=== PATIENT | female | born 1990 | race Caucasian/White ===

== ENCOUNTER 2019-04-25 18:51 | Emergency (ER) | payer MEDICAID ==
[~2019-04-25] VITALS: Ht 160 cm; Wt 72.1 kg
[2019-04-25 19:05] VITALS: Ht 160 cm; Wt 72.1 kg
[2019-04-25 19:27] LABS: BASOPHIL % 0.5 % (0-2); PLATELET COUNT 309 x10^3mcL (130-400); RED CELL DISTRIBUTION WIDTH 14.1 % (11.5-14.5)
[2019-04-25 20:01] LABS: ALBUMIN 3.4 g/dL (3.4-5.0); ALKALINE PHOSPHATASE 69 U/L (46-116); ALT/SGPT 78 U/L (14-59); AST/SGOT 49 U/L (15-37); BILIRUBIN TOTAL 1.25 mg/dL (0.20-1.00); CALCIUM 9.2 mg/dL (8.5-10.1); CARBON DIOXIDE 25.8 mmol/L (21-32); CHLORIDE SERUM 101 mmol/L (98-107); CREATININE SERUM 0.5 mg/dL (0.6-1.0); GFR1 > 60 mL/min; GLUCOSE SERUM 139 mg/dL (74-106); LIPASE 59 IU/L (73-393); SODIUM SERUM 141 mmol/L (136-145); TOTAL PROTEIN, SERUM 6.5 g/dL (6.4-8.2)
[2019-04-26 00:14] LABS: AMPHETAMINE QUAL UR NONE DETECTED (See below)
[2019-04-26 01:20] VITALS: BP 114/75
== END 2019-04-26 01:20 | disposition home or self-care (01) ==
LOC: ED 18:51
PROVIDERS: Emergency Medicine
DX: E87.6 Hypokalemia (principal); E86.0 Dehydration; R10.13 Epigastric pain
CPT/HCPCS: J2270; J2405; J3010; J3490; J7030

== ENCOUNTER 2019-05-09 20:24 | Emergency (ER) | payer MEDICAID ==
[~2019-05-09] VITALS: Ht 160 cm; Wt 68.5 kg
[2019-05-09 20:40] VITALS: Ht 160 cm; Wt 68.5 kg
[2019-05-09 22:19] LABS: BASOPHIL % 0.7 % (0-2); PLATELET COUNT 238 x10^3mcL (130-400); RED CELL DISTRIBUTION WIDTH 14.2 % (11.5-14.5)
[2019-05-09 22:30] LABS: CALCIUM 8.8 mg/dL (8.5-10.1); CARBON DIOXIDE 28.9 mmol/L (21-32); CHLORIDE SERUM 105 mmol/L (98-107); CREATININE SERUM 0.6 mg/dL (0.6-1.0); GFR1 > 60 mL/min; GLUCOSE SERUM 205 mg/dL (74-106); POTASSIUM SERUM 3.4 mmol/L (3.5-5.1); SODIUM SERUM 144 mmol/L (136-145)
[2019-05-09 22:34] LABS: ALKALINE PHOSPHATASE 61 U/L (46-116); ALT/SGPT 94 U/L (14-59); AST/SGOT 25 U/L (15-37); BILIRUBIN TOTAL 0.8 mg/dL (0.20-1.00); LIPASE 69 IU/L (73-393); TOTAL PROTEIN, SERUM 6.4 g/dL (6.4-8.2)
[2019-05-09 22:35] LABS: ALBUMIN 3.3 g/dL (3.4-5.0)
[2019-05-09] MEDS ORDERED: METFORMIN HCL850 MG PO (23:00)
[2019-05-09 23:35] LABS: UA SPECIFIC GRAVITY 1.015 (1.005-1.035); microscopic required? YES; urine erythrocyte NEGATIVE (NEGATIVE)
[2019-05-10 00:23] VITALS: BP 138/78
== END 2019-05-10 00:23 | disposition home or self-care (01) ==
LOC: ED 20:24
PROVIDERS: Emergency Medicine
DX: R10.13 Epigastric pain (principal); R11.10 Vomiting, unspecified; E11.9 Type 2 diabetes mellitus without complications; Z90.49 Acquired absence of other specified parts of digestive tract
CPT/HCPCS: J2270; J2765; J3490; J7030

== ENCOUNTER 2019-05-10 20:05 | Inpatient (IN) | payer MEDICAID ==
[~2019-05-10] VITALS: Ht 160 cm; Wt 69.0 kg
[~2019-05-10 20:05] MED LIST: METFORMIN HCL850 MG PO
--- NOTE | 2019-05-10 20:25 | NUR ---
PT PRESENTS TO ED WITH C/O ABDOMINAL PAIN N/V/D FOR X3 DAYS. PT STATES THAT SHE HAS BEEN EXPERIENCING SYMPTOMS ON AND OFF FOR X3 MONTHS. PT WAS SEEN BY GI DR AND IS WAITING FOR A TEST. PT STATES THAT SHE WAS SEEN IN ED YESTERDAY BUT WAS UNABLE TO FILL RX DUE TO BEING SO SICK. PT STATES THAT SHE HAS BEEN VOMITING AND HAVING DIARRHEA Q20MIN. PT ACTIVELY VOMITING AT THIS TIME. PT PLACED ON FULL CM. PT AOX4, RESP EVEN AND UNLABORED, NO ACUTE DISTRESS NOTED. PT FAMILY AT BEDSIDE.
--- NOTE | 2019-05-10 21:08 | NUR ---
PT REFUSING TEST. PT STATES, THAT THEY PERFORMED THE URINE PREG YESTERDAY AND IT WAS NEGATIVE.
--- NOTE | 2019-05-10 21:11 | NUR ---
PT MEDICATED PER EMAR, PT ON FULL CM AT THIS TIME. PT PROVIDED BLANKET AND PILLOW FOR COMFORT. FLUIDS RUNNING AND FAMILY AT BEDSIDE. PT AOX4, RESP EVEN AND UNLABORED, MILD DISTRESS FROM PAIN NOTED.
[2019-05-10 21:13] LABS: BASOPHIL % 0.2 % (0-2); PLATELET COUNT 295 x10^3mcL (130-400); RED CELL DISTRIBUTION WIDTH 14.3 % (11.5-14.5)
[2019-05-10 21:40] LABS: ALBUMIN 3.9 g/dL (3.4-5.0); ALKALINE PHOSPHATASE 72 U/L (46-116); ALT/SGPT 92 U/L (14-59); AST/SGOT 21 U/L (15-37); BILIRUBIN TOTAL 0.94 mg/dL (0.20-1.00); CALCIUM 9.8 mg/dL (8.5-10.1); CARBON DIOXIDE 23.5 mmol/L (21-32); CREATININE SERUM 0.6 mg/dL (0.6-1.0); GFR1 > 60 mL/min; GLUCOSE SERUM 268 mg/dL (74-106); LIPASE 49 IU/L (73-393); TOTAL PROTEIN, SERUM 7.5 g/dL (6.4-8.2)
[2019-05-10 21:48] LABS: CHLORIDE SERUM 99 mmol/L (98-107); POTASSIUM SERUM 3.3 mmol/L (3.5-5.1); SODIUM SERUM 133 mmol/L (136-145)
--- NOTE | 2019-05-10 22:16 | NUR ---
PT RESTING WITH EYES CLOSED AT THIS TIME. RESP EVEN AND UNLABORED, NO ACUTE DISTRESS NOTED. PT ON FULL CM, FAMILY AT BEDSIDE.
--- NOTE | 2019-05-10 23:10 | NUR ---
pt states she is feeling much better and denies pain at this time
--- NOTE | 2019-05-10 23:17 | NUR ---
admitting resident at bedside to discuss plan of care with pt
[2019-05-10 23:20] LABS: MAGNESIUM 1.7 mg/dL (1.8-2.4); PHOSPHOROUS 4.3 mg/dL (2.5-4.9)
[2019-05-10 23:28] LABS: T3 TOTAL 1.09 ng/mL
[2019-05-10 23:29] LABS: CHOLESTEROL/HDL RATIO 6.8
--- NOTE | 2019-05-10 23:49 | NUR ---
PT REPORT CALLED TO OT[facility] PLATT TO ASSUME PT CARE.
--- NOTE | 2019-05-10 23:50 | NUR ---
PT UNABLE TO PROVIDE URINE SPECIMEN, PER DR CORDERO OK TO SEND PT TO [facility] WITHOUT URINE SPECIMEN.
[2019-05-10 23:52] LABS: FREE T4 1.26 ng/dL (0.76-1.46); FREE THYROXINE INDEX 3.3 ug/dL (1.4-4.5); T4(THYROXINE) 9.6 ug/dL (4.7-13.3)
--- NOTE | 2019-05-10 23:55 | NUR ---
PT TRANSFERRED TO [facility] BY [place] BY LUCILLE ARANA. PT ACCEPTED BY [facility] PLATT TO ASSUME PT CARE. PT AOX4, RESP EVEN AND UNLABORED, NO ACUTE DISTRESS NOTED. PT FAMILY AT BEDSIDE.
--- NOTE | 2019-05-10 23:58 | NUR ---
RECEIVED PT FROM ED VIA CompringERNEY, CAME IN DUE TO ABDOMINAL PAIN X3 DAYS AND VOMITING. AAOX4. DENIES HEADACHE/DIZZINESS. NO SOB NOTED, LUNG SOUNDS CTA. DENIES CHEST PAIN/PRESSURE, SR=[id number]. C/O 5/10 EPIGASTRIC PAIN DESCRIBED THROBBING, MILD NAUSEA, AND DIARRHEA X1 EPISODE. BOWEL SOUNDS ACTIVE. ABDOMEN IS SOFT. VOIDS. IV SITE ON THE RAC IS PATENT AND INTACT, RECEIVED PT FROM ED W/ NS ONGOING. SIDE RAILS UPX2. CALL LIGHT ON REACH. ENDORSED TO PRIMARY NURSE TIO FOR CONTINUITY OF CARE
--- NOTE | 2019-05-11 | NUR ---
PT IS RESTING IN BED. A/O x4. DENIES ANY DISTRESS AT THIS TIME. MED SURG. PULSES ARE PRESENT. NO EDEMA NOTED. BOWEL SOUNDS PRESENT x4. C/O UPSET STOMACH. DENIEDS N/V AT THIS TIME. BROTHER IS AT BEDSIDE. BED IS AT LOWEST SETTING. CALL LIGHT WITHIN REACH. WILL CONTINUE TO MONITOR.
[2019-05-11 00:16] VITALS: BP 112/80
[2019-05-11 00:24] VITALS: Ht 160 cm; Wt 69.0 kg
--- NOTE | 2019-05-11 02:11 | NUR ---
PT IS RESTING IN BED WITH BOTH EYES CLOSED. BREATHING EVEN AND UNLABORED. NO SIGN OF DISTRESS NOTED. BED IS AT LOWEST SETTING. CALL LIGHT WITHIN REACH. WILL CONTINUE TO MONITOR.
[2019-05-11 06:07] VITALS: BP 133/89
--- NOTE | 2019-05-11 06:59 | NUR ---
PT IS RESTING IN BED. C/O OF ABD PAIN, PRN PAIN MEDICATION PROVIDED PER EMAR. PT HAD ONE EMESIS EPISODE DURING SHIFT. NO OTHER COMPLAINTS. URINE WAS COLLECTED AND SENT TO LAB. BED IS AT LOWEST SETTING. CALL LIGHT WITHINR REACH. WILL ENDORSE TO AM NURSE.
--- NOTE | 2019-05-11 07:20 | NUR ---
AAO X4.DENIES ANY PAIN/DISCOMFORT AT THE MOMENT.LUNGS CLEAR.PT NONE TELE.IVF NS GOING AT 100 ML/HR INFUSING WELL.CALL LIGHT WITHIN REACH.INSTRUCTED TO CALL FOR ANY PAIN/DISCOMFORT.WILL CONTINUE TO MONITOR PT.
[2019-05-11 07:48] LABS: microscopic required? YES; urine erythrocyte NEGATIVE (NEGATIVE)
[2019-05-11 08:32] LABS: AMPHETAMINE QUAL UR NONE DETECTED (See below)
[2019-05-11 11:53] LABS: BASOPHIL % 0.6 % (0-2); PLATELET COUNT 251 x10^3mcL (130-400); RED CELL DISTRIBUTION WIDTH 14.4 % (11.5-14.5)
[2019-05-11 11:59] LABS: CALCIUM 9.2 mg/dL (8.5-10.1); CARBON DIOXIDE 25.4 mmol/L (21-32); CHLORIDE SERUM 109 mmol/L (98-107); CREATININE SERUM 0.7 mg/dL (0.6-1.0); GFR1 > 60 mL/min; GLUCOSE SERUM 156 mg/dL (74-106); POTASSIUM SERUM 3.3 mmol/L (3.5-5.1); SODIUM SERUM 147 mmol/L (136-145)
--- NOTE | 2019-05-11 14:31 | NUR ---
INFORMED ABOUT THE UA RESULT ALSO ALSO FOR DIET ORDER.
--- NOTE | 2019-05-11 18:45 | NUR ---
NO SIGNIFICANT CHANGE NOTED.WILL ENDORSE TO NEXT SHIFT.
--- NOTE | 2019-05-11 19:19 | NUR ---
GAVE MORPHINE 2 MG IVP FOR C/O SEVERE ABD'L PAIN AT 10/10 PAIN SCALE.
--- NOTE | 2019-05-11 20:36 | NUR ---
PATIENT RECEIVED AWAKE, ALERT, ORIENTED X4 IN BED. C/O ON/OFF ABDOMINAL PAIN EARLIER, MEDICATED WITH MORPHINE SULFATE 2 MG IVP ORDERED. RESPIRATION EVEN AND UNLABORED, ON ROOM AIR. VOIDING FREELY WITHOUT DIFFICULTY. MILD GENERALIZED WEAKNESS, UP TO CHAIR EVERY 8HRS TOLERATED. SKIN DRY AND INTACT. ONGOING 0.9% NS AT 100 CC/HR INFUSING WELL AT THE RIGHT ANTECUBITAL AREA. WILL CONTINUE TO MONITOR.
[2019-05-11 21:05] VITALS: BP 134/93
--- NOTE | 2019-05-11 23:57 | NUR ---
PATIENT ALSO COMPLAINED OF NAUSEA. ZOFRAN 4 MG IVP GIVEN ORDERED. WILL CONTINUE TO MONITOR.
--- NOTE | 2019-05-12 00:01 | NUR ---
PATIENT COMPLAINED OF SHARP, ABDOMINAL PAIN, 7/10. MEDICATED WITH MORPHINE SULFATE 2 MG IVP ORDERED. WILL CONTINUE TO MONITOR.
[2019-05-12 05:33] VITALS: BP 147/94
--- NOTE | 2019-05-12 05:48 | NUR ---
PATIENT COMPLAINED OF SHARP, ABDOMINAL PAIN, 8/10 AND NAUSEA. MEDICATED WITH MORPHINE SULFATE 2 MG IVP AND ZOFRAN 4 MG IVP ORDERED. WILL CONTINUE TO MONITOR.
[2019-05-12 06:40] LABS: BASOPHIL % 0.7 % (0-2); PLATELET COUNT 213 x10^3mcL (130-400); RED CELL DISTRIBUTION WIDTH 14.3 % (11.5-14.5)
[2019-05-12 06:50] LABS: CALCIUM 8.6 mg/dL (8.5-10.1); CARBON DIOXIDE 25.8 mmol/L (21-32); CHLORIDE SERUM 107 mmol/L (98-107); CREATININE SERUM 0.5 mg/dL (0.6-1.0); GFR1 > 60 mL/min; GLUCOSE SERUM 111 mg/dL (74-106); SODIUM SERUM 144 mmol/L (136-145)
--- NOTE | 2019-05-12 06:52 | NUR ---
PATIENT RESTING IN BED RESPIRATION EVEN AND UNLABORED, ON ROOM AIR. IV SITE NO SIGN OF INFILTRATION. ASSISTED WITH NEEDS. SAFETY OBSERVED. PLACED BED IN THE LOWEST POSITION. PLACED CALL LIGHT WITHIN REACH AT ALL TIMES.
[2019-05-12 06:53] LABS: POTASSIUM SERUM 2.9 mmol/L (3.5-5.1)
--- NOTE | 2019-05-12 07:30 | NUR ---
PT ENDORSE TO ME THIS MORNING. LAYING IN BED RESTING. AA/OX4. BREATHING EVEN AND UNLABORED ON RA, NO ACUTE RESP DISTRESS OR SOB NOTED. MEDSURG. DENIES ANY CP OR PRESSURE. BOWEL SOUNDS ACTIVE IN ALL FOUR QUADS. VOIDS FREELY. MEDICATED PER EMAR FOR ABD PAIN. IV TO THE RAC INTACT AND PATENT, INFUSING AT 100ML/HR, NO REDNESS OR SWELLING NOTED. CALL LIGHT IN REACH. BED IN LOW POSITION. WILL CONTINUE PLAN OF CARE.
[2019-05-12 08:10] VITALS: BP 149/94
--- NOTE | 2019-05-12 13:30 | NUR ---
Initial Nutrition Assessment: Dx: Intractable N/V PMHx: DM PSHx: cholecystectomy Labs: (05/12) K 2.9L, BG 111H, BUN 4L, Cre 0.5L (05/10) CHOL 259H, LDLC 190H, HDLC 38L, Amylase 136H, Lipase 49L, Mg 1.7L, HgA1c 6.5H Meds: Colace, Glucophage, Humulin R, Reglan, Toradol, Tums, Zofran Diet: Clear liquid CCHO diet x 1 day PO Intake: 50% of lunch 05/12. Ht: 5'3 Wt: 152 lb, 69 kg BMI: 26.9 kg/m2 (Overweight) Bed scale: 160.2 lb- may be skewed d/t blankets and pillows on bed. IBW: 115 lb, 52 kg %IBW: 132 UBW: 188 lb, timeframe unknown Age: 28 yrs old/Female Food Allergies: NKFA Skin:is intact. Merlin: 20 Edema: none GI: abd is soft, w/ active bowel sounds. Last BM: 05/11/19 Per provider's notes, CT abd/pelvis showed constipation and/or fecal impaction. Pt seen earlier today, c/o abd pain and discomfort. She reported her last episode of vomiting was this morning. She also stated that she has been eating poorly at home for 4 months now. Trigger received: N/V/D for 3 days. Problem with: N/V: yes D/C: no Problems with: Chewing:no Swallowing: no Current appetite: poor Recent wt change: yes, 36 lb wt loss %wt change: n/a Vitamin/Supplement use: none Special diet at home: Diabetic diet Physical activity: none at this time d/t pt's report of weakness. Nutrition education on Gastroparesis and Carbohydrate Counting provided to pt. Handouts from [facility] were provided. RD's contact information were also provided for future nutrition related questions. Food-drug interactions: Lipitor Education given? Yes. Estimated Nutritional Needs Based on ideal body weight 52 kg Energy: 7181-1323 kcal/d (25-30 kcal/kg for maintenance) Protein: 42-52 g/d (.8-1 g/kg- for adult maintenance) Fluid: 7589-8237 ml/d (1 ml/kcal) or per doctor Nutrition Diagnosis 1. Inadequate nutrient intake r/t altered GI function AEB pt's report of N/V/D and PO intake <75% of meals. Intervention 1. Recommend continuing Clear liquid CCHO diet per MD orders. 2. If/when medically appropriate, advance diet to GI Soft CCHO. Monitor/Evaluate Goal: PO intake at least 75% of estimated needs Monitor: PO intake, Labs, GI function F/U in 2-3 days as high risk 05/14-05/15
--- NOTE | 2019-05-12 13:31 | NUR ---
1. Recommend continuing Clear liquid CCHO diet per MD orders. 2. If/when medically appropriate, advance diet to GI Soft CCHO.
[2019-05-12 16:36] VITALS: BP 144/91
--- NOTE | 2019-05-12 18:57 | NUR ---
NO ACUTE CHANGES AT THIS TIME. NO ACUTE RESP DISTRESS OR SOB NOTED. MEDICATED PER EMAR FOR ABD PAIN AT THIS TIME. WILL ENDORSE TO INCOMING RN.
--- NOTE | 2019-05-12 19:15 | NUR ---
RECEIVED PT FROM PREVIOUS SHIFT NURSE. PT AOX4. DENIES SORENSON/DIZZINESS. MED SURG PT DENIES CP/PRESSURE. DENIES SOB/DIFFICULTY BREATHING. IV TO RAC, INTACT AND PATENT. BED IN LOWEST POSITION. CALL LIGHT WITHIN REACH. WILL CONTINUE TO MONITOR.
[2019-05-12 20:17] VITALS: BP 143/95
[2019-05-13 05:34] VITALS: BP 159/99
[2019-05-13 07:21] LABS: PLATELET COUNT 232 x10^3mcL (130-400); RED CELL DISTRIBUTION WIDTH 12.9 % (11.5-14.5)
--- NOTE | 2019-05-13 07:30 | NUR ---
PT ENDORSE TO ME THIS MORNING. LAYING IN BED RESTING. BREATHING EVEN AND UNLABORED ON RA, NO ACUTE RESP DISTRESS OR SOB NOTED. MEDSURG.DENIES ANY CP OR PRESSURE. IV TO THE RAC INTACT AND PATENT 0.45% NACL WITH KCL 20 MEQ INFUSING AT 80ML/HR, NO REDNESS OR SWELLING NOTED. WILL CONTINUE PLAN OF CARE.
[2019-05-13 07:31] LABS: CARBON DIOXIDE 22.9 mmol/L (21-32); CHLORIDE SERUM 101 mmol/L (98-107); CREATININE SERUM 0.5 mg/dL (0.6-1.0); GFR1 > 60 mL/min; GLUCOSE SERUM 113 mg/dL (74-106); SODIUM SERUM 140 mmol/L (136-145)
[2019-05-13 07:37] LABS: POTASSIUM SERUM 2.8 mmol/L (3.5-5.1)
--- NOTE | 2019-05-13 07:42 | NUR ---
LAB CALLED K 2.8, MADE AWARE. WILL CONTINUE PLAN OF CARE.
--- NOTE | 2019-05-13 08:00 | NUR ---
RAMBO JAMES MADE AWARE OF K 2.8
[2019-05-13 08:13] VITALS: BP 128/89
--- NOTE | 2019-05-13 10:42 | NUR ---
PT TAKEN DOWN TO RAD FOR XR: BE. WILL CONTINUE TO MONITOR WHEN PT RETURNS. BREATHING EVEN AND UNLABOARED ON RA. NO ACUTE RES DISTRSSS NOTED.
--- NOTE | 2019-05-13 11:50 | NUR ---
PT BACK FROM XR: BE/ TOERATED WELL. BM X2
[2019-05-13 15:45] VITALS: BP 139/101
--- NOTE | 2019-05-13 18:53 | NUR ---
NO ACUTE CHANGES AT THIS TIME. NO ACUTE RESP DISTRESS OR SOB NOTED. MEDICATED PER EMAR FOR ABD PAIN AT THIS TIME. WILL ENDORSE TO INCOMING RN .
--- NOTE | 2019-05-13 19:20 | NUR ---
RECEIVED PT FROM PREVIOUS SHIFT NURSE. PT AOX4. DENIES SORENSON/DIZZINESS. MED SURG PT. DENIES CP/PRESSURE. DENIES SOB/DIFFICULTY BREATHING, ON RA. IV TO RAC, INTACT AND PATENT. BED IN LOWEST POSITION. CALL LIGHT WITHIN REACH. WILL CONTINUE TO MONITOR.
[2019-05-13 21:02] VITALS: BP 145/93
--- NOTE | 2019-05-14 03:30 | NUR ---
PT RESTING IN BED. RR EVEN AND UNLABORED. IN NO ACUTE DISTRESS. CALL LIGHT WITHIN REACH. BED IN LOWEST POSITION. WILL CONTINUE TO MONITOR.
[2019-05-14 05:22] VITALS: BP 129/86
--- NOTE | 2019-05-14 06:30 | NUR ---
PT REFUSED PO MEDS, STATES SHE FELT NAUSEATED AND ALWAYS THROWS UP PO MEDS.
[2019-05-14 07:09] LABS: BASOPHIL % 0.5 % (0-2); PLATELET COUNT 242 x10^3mcL (130-400); RED CELL DISTRIBUTION WIDTH 14.1 % (11.5-14.5)
--- NOTE | 2019-05-14 07:30 | NUR ---
ASSUMED CARE OF PATIENT. SEEN AMBULATING THE HALLS THIS MORNING. NO COMPALINTS OF ABDOMINAL PAIN. NO APPARENT S/SX OF DISTRESS OR DISCOMFORT NOTED. FINISHING 0.45 NACL WITH KCL 20 MEQ AT 80ML/H, PENDING K LEVELS. RAC IV PATENT WITH NO REDNESS/SWELLING NOTED. WILL CONTINUE TO MONITOR.
[2019-05-14 07:39] LABS: CALCIUM 8.5 mg/dL (8.5-10.1); CARBON DIOXIDE 25.4 mmol/L (21-32); CHLORIDE SERUM 102 mmol/L (98-107); CREATININE SERUM 0.5 mg/dL (0.6-1.0); GFR1 > 60 mL/min; GLUCOSE SERUM 112 mg/dL (74-106); SODIUM SERUM 138 mmol/L (136-145)
[2019-05-14 07:54] LABS: POTASSIUM SERUM 2.9 mmol/L (3.5-5.1)
--- NOTE | 2019-05-14 08:20 | NUR ---
RAMBO JAMES MADE AWARE OF K LEVEL 2.8
[2019-05-14 09:11] VITALS: BP 145/86
--- NOTE | 2019-05-14 11:17 | NUR ---
PATIENT REFUSING REGLAN. NO REPORTS OF N/V. TOLERATING PO MEDS WELL.
--- NOTE | 2019-05-14 13:14 | NUR ---
PRN TORADOL PROVIDED FOR 8/10 BACK AND ABDOMINAL PAIN. NO APPARENT DISTRESS NOTED. FAMILY CURRENTLY AT BEDSIDE.
--- NOTE | 2019-05-14 14:41 | NUR ---
Follow-up Nutrition Assessment: (240-B) CASIMIRO MONTIEL 28F Dx: intactable nausea, vomiting PMHx: DM Labs: K 2.9 L, BG 112 H, BUN 3.0 L, Cr 0.5 L, ALT 92 H Meds: Amitiza, Cephulac, Colace, Glucophage, Humulin, Reglan, TUMS, Zofran Diet: full liquid PO Intake: ~50% Weights: 152# (05/11) 151# (05/10) 151# (05/09) Skin: WNL Merlin: 20 I/Os: 2420/0 (05/14) 3492/0 (05/13) 3000/600 (05/12) 250/0 (05/11) Edema: trace to hands and feet GI: BS active, no c/o abd pain Last BM: 05/14 Note (05/14): Pt visited bedside, noted saw pt walking around unit w/ family member. Pt states advanced from full liquid diet to regular diet, confirmed advanced to CCHO diet in chart. Pt still c/o abd pain, but mild 3 out of 10. Pt states regularly had some vomiting, but is doing better today. Pt also states having constipation, reason why she was walking around the unit. Pt states appetite is alright, eats about 60% of tray. Will monitor pt's PO on CCHO diet and reports of worsening N/V. Estimated Nutritional Needs Based on body weight (52 kg) Energy: 4708-6132 kcal/day (25-30 kcal/kg for maintenance) Protein: 58-77 grams/day (1.5-2.0 g/kg for maintenance) Fluid: 3866-1871 mL/day (30-35 mL/kg for rehydration r/t N/V) Nutrition Diagnosis: 05/12: Inadequate nutrient intake r/t altered GI function AEB pt's report of N/V/D and PO intake <75% of meals 05/14: No new nutrition diagnosis at this time. Intervention 1. Continue current diet order as tolerated: [facility] Monitor/Evaluate Goal: Have pt meet at least 75% of estimated needs Monitor: PO intake, Labs, GI function F/U in 3-5 days as moderate risk 05/17-05/19
--- NOTE | 2019-05-14 14:42 | NUR ---
Recommendations: 1. Continue current diet order as tolerated: [facility]
--- NOTE | 2019-05-14 14:46 | NUR ---
PATIENT SEEN RESTING IN BED WITH EQUAL AND UNLABORED RESPIRATIONS. FAMILY AT BEDSIDE. Jessika RODRIGES CONTINUING. NO NEW ISSUES.
--- NOTE | 2019-05-14 16:34 | NUR ---
PRN NORCO PROVIDED FOR 8/10 ABDOMINAL PAIN. NO APPARENT DISTRESS NOTED.
--- NOTE | 2019-05-14 17:08 | NUR ---
COMPLAINING OF 8/10 PAIN. ALL PRN PAIN MEDICATIONS PROVIDED. RAMBO DURAN.
--- NOTE | 2019-05-14 17:13 | NUR ---
PER CHILLER HAND JACOB, PATIENT TO HAVE IMPACTION REMOVED BY BM FIRST BEFORE MORPHINE CAN BE PROVIDED. TORADOL AND NORCO ONLY OPTIONS AT THIS TIME. PATIENT NOTIFIED AND WAS ACCEPTING OF SITUATION.
[2019-05-14 17:14] VITALS: BP 138/97
--- NOTE | 2019-05-14 17:37 | NUR ---
REPORTS NOT PASSING ANY GAS TODAY. TOLERATING REGULAR DIET WELL, NO COMPLAINTS OF NAUSEA OR VOMITING.
--- NOTE | 2019-05-14 18:44 | NUR ---
PATIENT SEEN RESTING IN BED WITH FAMILY AT BEDSIDE. COMPLAINING OF ABDOMINAL PAIN, NO PRN MEDICATIONS AVAILABLE. WILL ENDORSE CARE TO ONCOMING RN.
--- NOTE | 2019-05-14 19:15 | NUR ---
REPORT RECIEVED FROM DAY SHIFT RN. PATIENT WAS SEEN AND IS RESTING COMFORTABLY IN BED WITH FAMILY AT BEDSIDE. BREATHING EVEN ON ROOM AIR. NO SOB OR RESP DISTRESS NOTED. DENIES CHEST PAIN. C/O 06/02 ABD PAIN RADIATING TO HER BACK. WILL MEDICATED WITH PRN PAIN MED. IV TO THE RAC, SALINE LOCK, PATENT AND INTACT. NO REDNESS OR SWELLING NOTED. COMFORT AND SAFETY MEASURES MAINTAINED. BED IS LOCKED AND IN THE LOWEST POSITION. CALL LIGHT IS WITHIN REACH. WILL CONTINUE TO MONITOR.
--- NOTE | 2019-05-14 19:30 | NUR ---
C/O 06/02 ABD PAIN RADIATING TO HER BACK. PATIENT ALSO REPORTS THAT SHE HAD AN EPISDOE OF EMESIS ESTIMATING AROUND 20ML OF HER DINNER. PRN TORADOL AND ZOFRAN WERE ADMINISTERED PRESCRIBED. ALSO UPDATED PATIENT AND THE FAMILY ABOUT THE PATIENT'S PLAN OF CARE. WILL CONTINUE TO MONITOR AND REASSESS PAIN LEVEL. CALL LIGHT IS WITHIN REACH.
--- NOTE | 2019-05-14 20:15 | NUR ---
KRIDER STARTED AND IS INFUSING WELL. PATIENT STATES HER PAIN IS NOW A 6/10 AND IMPROVING FROM BEFORE. SHE ALSO STATES THAT HER NAUSEA IMPROVED WELL. WILL CONTINUE TO MONITOR. CALL LIGHT IS WITHIN REACH.
[2019-05-14 21:03] VITALS: BP 138/99
--- NOTE | 2019-05-14 21:59 | NUR ---
PATIENT IS AMBULATING AROUND THE HALLWAY AT THIS TIME.
--- NOTE | 2019-05-14 22:52 | NUR ---
C/O RIGHT FOOT PAIN 10/10. PRN NORCO WAS ADMINISTERED PRESCRIBED. WILL CONTINUE TO MONITOR AND REASSESS PAIN LEVEL. CALL LIGHT IS WITHIN REACH.
--- NOTE | 2019-05-15 00:24 | NUR ---
PATIENT HAD AN EPISODE OF EMESIS. STATES THAT IT WAS JUST STOMACH ACID. OFFERED PRN ZOFRAN, BUT PATIENT REFUSED AT THIS TIME. PRN NORCO WAS ADMINSITERED PRESCRIBED FOR 7/10 ABD PAIN RADIATING TO THE BACK. PRN TUMS ALSO ADMINSITERED BECAUSE PATIENT WAS C/O ACID REFLUX S/P EMESIS. WILL CONTINUE TO MONITOR AND REASSESS PAIN LEVEL. PATIENT STATES SHE DOES NOT FEEL NAUSEOS ANYMORE AND FEELS MUCH BETTER AFTER THROWING UP. KRIDER INFUSING WELL. PATIENT ALSO REPORTS SHE HAS BEEN HAVING LIQUID BMS THROUGHOUT THE NIGHT. SAFETY PRECAUTIONS IN PLACE.
--- NOTE | 2019-05-15 01:45 | NUR ---
PATIENT IS RESTING COMFORTABLY IN BED WITH EYES CLOSED. NO S/S OF PAIN NOTED. BREATHING EVEN ON ROOM AIR. NO DISTRESS NOTED. SAFETY MEASURES IN PLACE. CALL LIGHT IS WITHIN REACH. WILL CONTINUE TO MONITOR.
--- NOTE | 2019-05-15 05:43 | NUR ---
C/O 7/10 ABD BACK RADIATING TO THE BACK. PRN TORADOL WAS ADMINISTERED PRESCRIBED. WILL CONTINUE TO MONITOR AND REASSESS PAIN LEVEL. CALL LIGHT IS WITHIN REACH.
[2019-05-15 05:46] VITALS: BP 142/95
--- NOTE | 2019-05-15 06:30 | NUR ---
IV TO THE RAC WAS LEAKING. REMOVED IV WITH CATHETER INTACT. NO IV INSERTED TO THE RIGHT WRIST, 22G. PATENT AND INTACT. NO REDNESS OR SWELLING NOTED. FLUSHES WELL. PATIENT TOLERATED WELL.
--- NOTE | 2019-05-15 06:52 | NUR ---
PATIENT SLEPT IN INTERVALS THROUGHOUT THE NIGHT. NO ACUTE CHANGES NOTED. BREATHING EVEN ON ROOM AIR. C/O PAIN X2 THROUHGOUT THE NIGHT. MEDICATED WITH PRN PAIN MEDS WITH MILD RELIEF. HAD 3 WATERY BMS. HAD EMESIS X2. IV TO THE RIGTH WRIST, SL. PATENT AND INTACT. NO REDNESS OR SWELLING NOTED. SAFETY MEASURES IN PLACE. CALL LIGHT IS WITHIN REACH. WILL EDNORSE CARE TO DAY SHIFT RN.
[2019-05-15 07:06] LABS: CALCIUM 9.4 mg/dL (8.5-10.1); CARBON DIOXIDE 21.6 mmol/L (21-32); CHLORIDE SERUM 103 mmol/L (98-107); CREATININE SERUM 0.6 mg/dL (0.6-1.0); GFR1 > 60 mL/min; GLUCOSE SERUM 126 mg/dL (74-106); POTASSIUM SERUM 3.5 mmol/L (3.5-5.1); SODIUM SERUM 140 mmol/L (136-145)
--- NOTE | 2019-05-15 07:12 | NUR ---
ASSUMED CARE OF PATIENT. PATIENT SEEN SLEEPING. NO APPARENT S/SX OF DISTRESS OR DISCOMFORT. IV ON RIGHT WRIST SALINE LOCKED, NO REDNESS OR SWELLING NOTED. SISTER AT BEDSIDE. WILL CONTINUE TO MONITOR.
[2019-05-15 07:29] LABS: BASOPHIL % 0.5 % (0-2); PLATELET COUNT 287 x10^3mcL (130-400); RED CELL DISTRIBUTION WIDTH 14.3 % (11.5-14.5)
--- NOTE | 2019-05-15 08:56 | NUR ---
PATIENT SEEN AMBULATING HALLS WITH FAMILY AT SIDE. ENDORSES HAVING 2 LARGE BM'S LAST NIGHT. TOLERATING DIET WELL, NO REPORTS OF N/V.
[2019-05-15 09:40] VITALS: BP 138/105
--- NOTE | 2019-05-15 10:14 | NUR ---
LASHONDA FERNANDEZ PROVIDED FOR 7/10 ABDOMINAL PAIN.
--- NOTE | 2019-05-15 10:46 | NUR ---
PRN TORADOL PROVIDED FOR 5/10 ABDOMINAL PAIN.
--- NOTE | 2019-05-15 11:05 | NUR ---
PER . REBECCA TO BE D/C TO AVOID ANTISPASMOTICS. PLAN FOR COLONOSCOPY TOMORROW.
--- NOTE | 2019-05-15 12:29 | NUR ---
PATIENT COMPLAINING OF BURNING WITH KRIDER. RATE REDUCED TO 10ML/HR AND ICE PACK APPLIED.
--- NOTE | 2019-05-15 14:00 | NUR ---
PATIENT COMPLIANT WITH MEDICATIONS. COMPLAINTS OF MILD ABDOMINAL PAIN BUT TOLERABLE. CONSENTS FOR COLONOSCOPY TOMMORROW SIGNED AND PLACED IN CHART. NOTIFIED OF PROCEDURE AT APPROXIMATELY 8AM TOMORROW MORNING. FAMILY AT BEDSIDE.
--- NOTE | 2019-05-15 17:21 | NUR ---
PATIENT MOVED TO 254B
[2019-05-15 17:45] VITALS: BP 139/94
--- NOTE | 2019-05-15 18:14 | NUR ---
PATIENT EDUCATED ON BOWEL PREP. INITIATED TREATMENT.
--- NOTE | 2019-05-15 18:24 | NUR ---
1ML OF CLOTTED BLOOD REMOVED FROM GRETTA DRAIN. MINIMAL DRAINAGE NOTED.
--- NOTE | 2019-05-15 18:41 | NUR ---
PATIENT SEEN IN ROOM COMPLIANT WITH BOWEL PREP. FAMILY AT BEDSIDE. NO COMPLAINTS OF PAIN OR DISCOMFORT. IV ON RIGHT WRIST PATENT AND SALINE LOCKED, NO REDDNESS/SWELLING NOTED. WILL ENDORSE CARE TO ONCOMING RN.
--- NOTE | 2019-05-15 19:45 | NUR ---
RECEIVED PATIENT AMBULATING ALONG THE HALLWAY, WITH FAIR STEADY GAIT. DENIES ANY PAIN/DISCOMFORT AT THIS TIME. RESPIRATION EVEN AND UNLABORED , ON ROOM AIR, NO SS/ OF RESPIRATORY INSUFFICENCY. IV ACCESS AT THE RIGHT WRIST G#22 INTACT , NO REDNESS NOTED. NO EDEMA NOTED BOTH BUE/BLE. WILL CONTINUE TO MONITOR.
[2019-05-15 21:11] VITALS: BP 136/89
--- NOTE | 2019-05-15 23:00 | NUR ---
BOWEL PREP TOLERATED WELL. HAND BM 2X LARGE AMOUNT OF CLEAR BROWNISH COLOR , KEPT CLEAN AND DRY. IV ACCESS AT THE RIGH WRIST INTACT AND APTENT. NO SWELLING NOTED AT THE IV SITE. KEPT CLEAN AND DRY.
[2019-05-16 05:34] VITALS: BP 132/84
--- NOTE | 2019-05-16 05:55 | NUR ---
MAINTAINED NPO FOR COLONOSCOPY TODAY. AMBULATED TO BATHROOM FOR PERSONAL MEEDS. KEPT CLEAN AND DRY.
--- NOTE | 2019-05-16 07:23 | NUR ---
ASSUMED CARE OF PATIENT. SEEN SLEEPING THIS MORNING. NO APPARENT DISTRESS OR DISCOMFORT NOTED. IV ON RIGHT HAND SALINE LOCKED. REPORT PROVIDED TO GI THIS MORNING. WILL CONTINUE TO MONITOR.
[2019-05-16 07:27] LABS: BASOPHIL % 0.5 % (0-2); PLATELET COUNT 274 x10^3mcL (130-400)
[2019-05-16 07:52] LABS: CALCIUM 9.3 mg/dL (8.5-10.1); CARBON DIOXIDE 25.3 mmol/L (21-32); CHLORIDE SERUM 104 mmol/L (98-107); CREATININE SERUM 0.5 mg/dL (0.6-1.0); GFR1 > 60 mL/min; GLUCOSE SERUM 101 mg/dL (74-106); SODIUM SERUM 143 mmol/L (136-145)
--- NOTE | 2019-05-16 08:02 | NUR ---
TAKEN DOWN TO GI LAB.
--- NOTE | 2019-05-16 08:53 | NUR ---
PER GI LAB: BOWEL CLEAR, 125MCG FENTANYL, 5 MG VERSED, 200ML NS. REMOVED 1 POLYP IN SIGMOID, OTHERWISE NORMAL BOWEL.
[2019-05-16 09:02] LABS: POTASSIUM SERUM 2.8 mmol/L (3.5-5.1)
--- NOTE | 2019-05-16 09:05 | NUR ---
RETURN FROM GI LAB. PATIENT APPEARS DROWSY BUT IS ALERT AND ORIENTED. AT BEDSIDE. PATIENT STABLE AT THIS TIME.
[2019-05-16 09:10] VITALS: BP 102/62
--- NOTE | 2019-05-16 10:50 | NUR ---
K RIDER ADMINISTERED ORDERED. COMPLAINING OF PAIN ALONG IV SITE. REDUCED TO 40ML/HR AND ICE PACK APPLIED. EFFECTIVE; NO LONGER BURNING.
--- NOTE | 2019-05-16 11:13 | NUR ---
PATIENT TOLERATING PO DIET WELL. NO REPORTS OF NAUSEA OR VOMITING AT THIS TIME. REMAINS AT BEDSIDE.
--- NOTE | 2019-05-16 14:03 | NUR ---
PATIENT RESTING IN ROOM WITH FAMILY BEDSIDE. NO COMPLAINTS OF PAIN OR DISCOMFORT. NO REPORTS OF N/V. ENDORSES "FEELING BETTER." NO NEW ISSUES.
--- NOTE | 2019-05-16 17:03 | NUR ---
PATIENT SEEN RESTING IN ROOM WITH FAMILY MEMBERS AT BEDSIDE. NO COMPLAINTS OF PAIN OR DISCOMFORT. NO N/V. PATIENT REPORTS LOOKING FORWARD TO DISCHARGE. NO NEW ISSUES.
[2019-05-16 17:29] VITALS: BP 143/101
--- NOTE | 2019-05-16 18:46 | NUR ---
PATIENT SEEN WITH FAMILY AT BEDSIDE. NO CMOPLAINTS OF ABDOMINAL PAIN. NO COMPLAINTS OF N/V. TOLERATING DIET WELL. IV REMAINS SALINE LOCKED AT THIS TIME. WILL ENDORSE CARE TO ONCOMING RN.
--- NOTE | 2019-05-16 19:42 | NUR ---
RECEIVED REPORT FROM AM RN. PT IS ALERT AND ORIENTED X4. PUPILS REACTIVE TO LIGHT. PT IS BREATHING E/U ON RA. LUNG SOUNDS CLEAR TO BILATERAL UPPER LOBES, DIMINSHED TO BILATEAR LOWER LOBES. S1 S2 HEART SOUNDS AUSCULTATED. PERIPHERAL IV TO RIGHT HAND SALINE LOCKED. PULSES MODERATE X4. CAP REFILL <3 SECONDS X4. SKIN IS WARM AND CONSISTENT WITH ETHNICITY. ABD IS SOFT AND FLAT WITH ACTIVE BOWEL SOUNDS X4Q. PT NOT COMPLAINING OF ABD PAIN AT THIS TIME. PT STATING HAVING LIQUID STOOL. PT ABLE TO AMBULATE TO RESTROOM INDEPENDENTLY. WILL CONTINUE TO MONITOR.
[2019-05-16 20:48] VITALS: BP 132/96
--- NOTE | 2019-05-16 21:00 | NUR ---
ATTEMPTED TO GIVE PATIENT 2100 MEDS, BUT PT REFUSED ALL OF THEM SAYING SHE IS "GOING TO BE DISCHARGED TOMORROW AND I DONT THINK I NEED TO TAKE THEM ANYMORE". EDUCATED THE PATIENT ON THE IMPORTANCE OF FOLLOWING HER MED REGIMEN, AND THE PURPOSE AND SIDE EFFECTS OF THE MEDS, BUT PT CONTINUED TO REFUSE.
--- NOTE | 2019-05-16 23:37 | NUR ---
PT SLEEPING CALMLY IN BED. EQUAL CHEST RISE AND FALL. WILL CONTINUE TO MONITOR.
[2019-05-17 05:36] VITALS: BP 122/81
--- NOTE | 2019-05-17 07:26 | NUR ---
ALL CARE ENDORSED TO LC CALIX. ALL QUESTIONS AND CONCERNS ANSWERED.
--- NOTE | 2019-05-17 07:45 | NUR ---
RECEIVED PT RESTING IN BED. NO ACUTE DISTRESS. SLEEPING BUT EASILY AROUSABLE. BREATHING EVEN AND UNLABORED ON RA. APPEARS COMFORTABLE, NO PAIN NOTED. IV TO R WRIST, NO REDNESS OR SWELLING. BED IN LOW POSITION, CALL LIGHT WITHIN REACH. WILL CONTINUE TO MONITOR.
[2019-05-17 08:09] LABS: BASOPHIL % 0.6 % (0-2); PLATELET COUNT 257 x10^3mcL (130-400); RED CELL DISTRIBUTION WIDTH 14.2 % (11.5-14.5)
[2019-05-17 08:22] LABS: CALCIUM 8.9 mg/dL (8.5-10.1); CARBON DIOXIDE 24.9 mmol/L (21-32); CHLORIDE SERUM 105 mmol/L (98-107); CREATININE SERUM 0.4 mg/dL (0.6-1.0); GFR1 > 60 mL/min; GLUCOSE SERUM 134 mg/dL (74-106); SODIUM SERUM 141 mmol/L (136-145)
[2019-05-17 08:53] VITALS: BP 129/99
--- NOTE | 2019-05-17 09:53 | NUR ---
PT AMBULATING IN HALLWAYS, GAIT STEADY. NO C/O PAIN. WILL CONTINUE TO MONITOR.
[2019-05-17 10:29] VITALS: BP 129/99
[2019-05-17] MEDS ORDERED: ELA25 PO (11:53)
[2019-05-17] MEDS ORDERED: AMITIZA24 MC1 PO (11:54)
--- NOTE | 2019-05-17 12:46 | NUR ---
PT DISCHARGED TO HOME IN NO ACUTE DISTRESS. AWAKE, ALERT, AND ORIENTED. VSS. AMBULATORY. RX GIVEN. DISCHARGE EDUCATION PROVIDED, PT VERBALIZED UNDERSTANDING. INSTRUCTED PT TO FOLLOW UP WITH PCP. PT GIVEN COPY OF COLONOSCOPY IMAGING. IV DC'D WITH CATHETER INTACT. BELONGINGS WITH PT. HUMPHREY JORGE ACCOMPANIED PT TO LOBBY.
== END 2019-05-17 12:47 | disposition home or self-care (01) | DRG 48 ==
LOC: ED 20:05 → MU 22:44
PROVIDERS: Emergency Medicine; General Practice; Internal Medicine Gastroenterology; ADMIT Internal Medicine
PROC: 0DJD8ZZ Inspection of Lower Intestinal Tract, Via Natural or Artificial Opening Endoscopic (ICD-10-PCS; principal; 2019-05-16 08:00)
DX: E11.43 Type 2 diabetes mellitus with diabetic autonomic (poly)neuropathy (principal); N17.0 Acute kidney failure with tubular necrosis; K31.84 Gastroparesis; E87.1 Hypo-osmolality and hyponatremia; N39.0 Urinary tract infection, site not specified; E83.42 Hypomagnesemia; E87.6 Hypokalemia; R80.9 Proteinuria, unspecified; E78.5 Hyperlipidemia, unspecified; I10 Essential (primary) hypertension; Z68.26 Body mass index [BMI] 26.0-26.9, adult; Z79.84 Long term (current) use of oral hypoglycemic drugs
CPT/HCPCS: 45378; 82962; 84439; 87046; 87046-59; G0378; J1200; J1610; J1885; J2250; J2270; J2310; J2405; J2765; J3010; J3475; J3480; J3490; J7030; J7040; J7050; J8597; Q0092; Q9967

== ENCOUNTER 2019-05-27 01:58 | Inpatient (IN) | payer MEDICAID ==
[~2019-05-27] VITALS: Ht 160 cm; Wt 65.4 kg
[~2019-05-27 01:58] MED LIST changes: +AMITIZA24 MC1 PO; +ELA25 PO
[2019-05-27 02:03] VITALS: Ht 160 cm; Wt 65.4 kg
--- NOTE | 2019-05-27 02:19 | NUR ---
DR PANIAGUA AT BEDSIDE FOR MSE
--- NOTE | 2019-05-27 02:39 | NUR ---
EKG COMPLETED BY EMT JUSTING AND LAB AT BEDSIDE. PT GIVEN MEDICATIONS ORDERED. NO S/S OF DISTRESS. VITALS STABLE WILL CONTINUE TO MONITOR.
[2019-05-27 02:52] LABS: BASOPHIL % 0.5 % (0-2); PLATELET COUNT 342 x10^3mcL (130-400); RED CELL DISTRIBUTION WIDTH 13.9 % (11.5-14.5)
[2019-05-27 03:00] LABS: CALCIUM 10.2 mg/dL (8.5-10.1); CARBON DIOXIDE 25.3 mmol/L (21-32); CHLORIDE SERUM 97 mmol/L (98-107); CREATININE SERUM 0.8 mg/dL (0.6-1.0); GFR1 > 60 mL/min; GLUCOSE SERUM 426 mg/dL (74-106); POTASSIUM SERUM 4.5 mmol/L (3.5-5.1); SODIUM SERUM 135 mmol/L (136-145)
[2019-05-27 03:10] LABS: ALBUMIN 3.9 g/dL (3.4-5.0); ALKALINE PHOSPHATASE 71 U/L (46-116); ALT/SGPT 81 U/L (14-59); AST/SGOT 26 U/L (15-37); BILIRUBIN TOTAL 1.09 mg/dL (0.20-1.00); LIPASE 109 IU/L (73-393); TOTAL PROTEIN, SERUM 7.7 g/dL (6.4-8.2)
--- NOTE | 2019-05-27 04:02 | NUR ---
PT AMBULATED TO RESTROOM WITH STEADY GAIT. URINE SAMPLE COLLECTED AND SENT TO LAB. VITALS STABLE. PT DENIES PAIN. POSTIONED FOR COMFORT WITH MOTHER AND AT BEDSIDE
--- NOTE | 2019-05-27 04:18 | NUR ---
LAB AT BEDSIDE FOR COLLECTION OF CULTURES.
--- NOTE | 2019-05-27 04:22 | NUR ---
X RAY AT BEDSIDE
--- NOTE | 2019-05-27 04:30 | NUR ---
ADMITTING MD AT BEDSIDE FOR EVALUATION
[2019-05-27 04:39] LABS: CHOLESTEROL/HDL RATIO 8.6
--- NOTE | 2019-05-27 04:40 | NUR ---
REPORT GIVEN TO TORI TO ASSUME CARE OF PT
--- NOTE | 2019-05-27 04:50 | NUR ---
RECEIVED PT FROM ED VIA WHEELCHAIR ACCOMPANIED BY , MOTHER AND EMT. PT ABLE TO AMBULATE TO BED. EVEN AND UNLABORED RESPIRATION ON RA. IVL PATENT AND INTACT. C/O ABD PAIN 03/03 BUT RESOLVING FROM MEDS GIVEN IN ED. ORIENTED PT TO ROOM AND SURROUNDINGS. INSTRUCTED ON USE OF CALL LIGHT WHEN IN NEED OF ASSISTANCE. BED IN LOWEST POSITION. SIDE RAILS UPX2. CALL LIGHT WITHIN REACH. WILL CONTINUE TO MONITOR.
[2019-05-27 05:01] VITALS: BP 108/74
[2019-05-27 05:58] LABS: microscopic required? YES; urine erythrocyte TRACE (NEGATIVE)
[2019-05-27 06:05] LABS: AMPHETAMINE QUAL UR NONE DETECTED (See below)
--- NOTE | 2019-05-27 06:57 | NUR ---
PT RESTING COMFORTABLY IN BED. FAMILY AT BEDSIDE. EVEN AND UNLABORED RESPIRATIONS NOTED ON RA. IVL PATENT AND INTACT. ALL NEEDS TENDED TO AND MET. BED IN LOWEST POSITION. SIDE RAILS UPX2. CALL LIGHT WITHIN REACH. WILL ENDORSE TO ONCOMING SHIFT.
--- NOTE | 2019-05-27 07:05 | NUR ---
RECEIVED PT FROM [facility] SHIFT NURSE. PT IN BED SLEEPING, AROUSABLE, RESP E/U ON RA. NO ACUTE DISTRESS NOTED. SALINE LOCK TO R HAND W/ NO ERYTHEMA OR EDEMA. BED IN LOWEST POSITION AND CALL LIGHT WITHIN REACH. WILL CONTINUE TO MONITOR.
[2019-05-27 08:01] VITALS: BP 105/74
--- NOTE | 2019-05-27 12:10 | NUR ---
PT IN BED SLEEPING, AROUSABLE. RESP E/U ON RA. NO ACUT DISTRESS NOTED, BED IN LOWEST POSITION AND CALL LIGHT WITHIN REACH. FAMILY MEMBER AT BEDSIDE. WILL CONTINUE TO MONITOR.
--- NOTE | 2019-05-27 12:10 | NUR ---
PT IN BED SLEEPING, AROUSABLE, RESP E/U ON RA. NO ACUTE DISTRESS NOTED. BED IN LOWEST POSITION AND CALL LIGHT WITHIN REACH. FAMILY MEMBER AT BEDSIDE. WILL CONTINUE TO MONITOR.
[2019-05-27 12:18] VITALS: BP 106/68
[2019-05-27 15:55] VITALS: BP 114/75
--- NOTE | 2019-05-27 18:49 | NUR ---
PT RESTING IN BED, AOX4, RESP E/U ON RA. C/O ABD PAIN AND NAUSEA BUT TOLERABLE, NO REQUEST FOR PAIN/NAUSEA MEDS AT THIS TIME. COMFORT MEASURES IMPLEMENTED, ENCOURAGED TO EAT DINNER AND DRINK FLUIDS WHEN ABLE TO TOLERATE. BED IN LOWEST POSITION AND CALL LIGHT WITHIN REACH. WILL ENDORSE TO ONCOMING NURSE.
--- NOTE | 2019-05-27 19:40 | NUR ---
PT DENY ABD PAIN N/V AT THE MOMENT , LUNG SOUNDS CTA ,A BD SOFT BS ACTIVE X4, HL INTACT FLUSHING WELL . CALL LIGHT WITHIN PT;S REACH .
[2019-05-27 19:57] VITALS: BP 100/75
--- NOTE | 2019-05-28 00:12 | NUR ---
PT'S IN BED WITH EYES CLOSED
[2019-05-28 05:16] VITALS: BP 115/80
[2019-05-28 06:15] LABS: BASOPHIL % 0.9 % (0-2); PLATELET COUNT 285 x10^3mcL (130-400); RED CELL DISTRIBUTION WIDTH 13.8 % (11.5-14.5)
--- NOTE | 2019-05-28 06:24 | NUR ---
NO CHANGES OF CONDITION NOTED, ALL DUE MEDS GIVEN NO REACTION NOTED , HL INTACT FLUSHING WELL , . PT DENY N/V AT THE MOMENT .
[2019-05-28 06:44] LABS: CALCIUM 9.3 mg/dL (8.5-10.1); CARBON DIOXIDE 27.7 mmol/L (21-32); CHLORIDE SERUM 101 mmol/L (98-107); CREATININE SERUM 0.6 mg/dL (0.6-1.0); GFR1 > 60 mL/min; GLUCOSE SERUM 236 mg/dL (74-106); MAGNESIUM 1.8 mg/dL (1.8-2.4); PHOSPHOROUS 4.4 mg/dL (2.5-4.9); POTASSIUM SERUM 3.8 mmol/L (3.5-5.1); SODIUM SERUM 137 mmol/L (136-145)
--- NOTE | 2019-05-28 07:30 | NUR ---
PATIENT RESTING IN BED, NO ACUTE DISTRESS NOTED. FAMILY AT BEDSIDE. PATIENT DENIES PAIN AT THIS TIME. DENIES N/V. IV TO RIGHT HAND CDI & PATENT, NO S/S OF INFILTRATION, SALINE LOCK. CALL LIGHT WITHIN REACH, BED IN LOW POSITION, WILL CONTINUE TO MONITOR FOR CHANGES.
[2019-05-28 08:41] VITALS: BP 111/83
--- NOTE | 2019-05-28 11:53 | NUR ---
PATIENT C/O ABDOMINAL PAIN 05/03, MEDICATED PATIENT WITH NORCO. REPOSITIONED PATIENT FOR COMFORT. EDUCATED PATIENT ON PAIN MANAGEMENT. CALL LIGHT WITHIN REACH, BED IN LOW POSITION. WILL CONTINUE TO MONITOR.
--- NOTE | 2019-05-28 12:19 | NUR ---
Initial Nutrition Assessment: (232-B) CASIMIRO MONTIEL 28F Dx: Intracable vomiting, dehydration, hyperglycemia PMHx: DM2, Obesity PSHx: Cholecystectomy Labs: BG 236 H, Ca 10.2 H, ALT 81 H, Trig 171 H, Chol 257 H, LDL 176 H, HDL 30 L, A1c 6.7H, Ketones +2 H Meds: Amitiza, Colace, Dulcolax, Glucophage, Humulin, Reglan, Zofran Diet: CCHO PO intake since admission: <50% Ht: 63in Wt: 144# BMI: 25.6 Bed scale: 151.9# IBW: 115# %IBW: 125% UBW: 150# Age: 28 Food Allergies: NKFA Skin: Merlin: 22 Edema: None noted GI: Deny N/V at the moment Last BM: 05/24 Note (05/28): Nursing trigger for N/V/D >3d and poor PO >3d. Visited pt bedside, pt feeling tired. Pt states has N/V here and there, has good appetite but low PO r/t pain when consumes food, 4/10 abd pain at this time w/ some back pain. Pt also states consumes <50% of food on tray. Pt reports follows DM diet at home. Pt also reports to having lost about 40# in the last 4 months. Provided and explained handout on managing gallbladder issues with diet (i.e. small, frequent meals, low fat foods). Instructed pt to drink plenty of fluids each day. Pt appropriate for diet supplementation and adjustment. Spoke w/ Dr Funez regarding diet and ONS, confirmed. Problem with: N/V/D/C: some N/V Problems with: Chewing: No Swallowing: No Current appetite: good Recent wt change: 40# x 4mo, per pt %wt change: 21%, per pt Vitamin/Supplement use: None Special diet at home: DM diet Physical activity: N/A Nutrition education given (specify specific nutrition education and handout given): [facility] Gallbladder Nutrition Therapy provided and explained: low fat diet, small frequest meals when cannot tolerate bigger meals. Recommended restrict fat to ~50g/day (<30% of recommended kcal/day). Food-drug interactions? Education given? [place] Gallbladder Nutrirtion Therapy Estimated Nutritional Needs Based on current body weight (65 kg) Energy: 6605-1772 kcal/day (25-30 kcal/kg for maintenance) Protein: 65-78 g/day (1.0-1.2 g/kg for maintenance) Fluid:0559-2669 mL/day (30-35 mL/kcal for rehydration r/t N/V) Nutrition Diagnosis: 05/12: Inadequate nutrient intake r/t altered GI function AEB pt's report of N/V/D and PO intake <75% of meals 05/28: Inadequate nutrient intake r/t altered GI function AEB PO intake since admission <50% 05/28: Impaired nutrient utilization r/t Cholecystectomy AEB intractable vomiting, pain radiating to back, last BM >3days ago Intervention 1. Recommend add Low Fat diet [facility] diet order. 2. Recommend add Glucerna Chocolate TID w/ each meal. Monitor/Evaluate Goal: PO intake at least 75% of estimated needs Monitor: PO intake, Labs, GI function F/U in 3-5 days as modeate risk 05/31-06/02
--- NOTE | 2019-05-28 12:20 | NUR ---
Recommendations: 1. Recommend add Low Fat diet to [facility] diet order. 2. Recommend add Glucerna Chocolate TID w/ each meal.
--- NOTE | 2019-05-28 12:50 | NUR ---
PATIENT WAS C/O NAUSEA/VOMITTING MEDICATED PATIENT WITH ZOFRAN PER PROTOCOL. WILL CONTINUE TO MONITOR PATIENT, CALL LIGHT WITHIN REACH, BED IN LOW POSITION.
--- NOTE | 2019-05-28 14:25 | NUR ---
PATIENT WAS C/O CONTINOUS ABDOMINAL PAIN 07/03, PATIENT DESCRIBED PAIN THROBBING AND RADIATING TO BACK. DR RAJPUT MADE AWARE, AND STATES PATIENT WILL STAY ANOTHER NIGHT. MEDICATED PATIENT WITH MORPHINE PER PROTOCOL, REPOSITION PATIENT FOR COMFORT. WILL CONTINUE TO MONITOR AND MANAGE PAIN, CALL LIGHT WITHIN REACH, BED IN LOW POSITION FOR SAFETY PRECAUTION.
[2019-05-28 17:35] VITALS: BP 118/83
--- NOTE | 2019-05-28 18:01 | NUR ---
PATIENT SITTING UP AT BEDSIDE, EATING SMALL BITES OF HER DINNER. ENCOURAGED PATIENT TO EAT, DENIES NAUSEA. NO ACUTE DISTRESS NOTED AT THIS TIME. PATEINT DENIES PAIN AT THIS TIME. NO RESPIRATORY DISTRESS NOTED. IV TO RIGHT HAND SALINE LOCK, IV SITE CDI & PATENT, NO S/S OF INFILTRATION. CALL LIGHT WITHIN REACH, BED IN LOW POSITION. WILL ENDORSE REPORT TO NIGHT RN.
--- NOTE | 2019-05-28 20:00 | NUR ---
PT RECIEVED FROM DAY NURSE. PT RESTING IN BED. FAMILY AT BEDSIDE. NO COMPLAINTS OF PAIN AT THIS TIME. DENIES N/V, DIZZINESS, OR PALPATATIONS. LUNG SOUNDS CLEAR BILATERALLY, ON RA. BOWEL SOUNDS PRESENT AND ACTIVE BILATERALLY, LAST BM 05/28. EPIGASTRIC PAIN WITH PALPATION. RH IV CDI. CALL LIGHT W/I REACH, BED AT LOWEST POSITION, WILL CONTINUE TO MONITOR.
--- NOTE | 2019-05-28 20:01 | NUR ---
SPOKE TO DR. NUNES. MADE AWARE OF URINE GRAM STAIN GROWING GRAM NEG BACILLI AND PT IS NOT ON ANY ABX.
[2019-05-28 21:34] VITALS: BP 112/80
--- NOTE | 2019-05-28 21:50 | NUR ---
BLOOD SUGAR 163. PT REFUSED 3 UNITS REGULAR INSULIN. EDUCATION PROVIDED REGARDING TAKING INSULIN PER SLIDING SCALE TO KEEP BLOOD SUGAR AT AN APPROPRIATE LEVEL. PT VERBALIZED UNDERSTANDING BUT STILL REFUSED.
--- NOTE | 2019-05-29 | NUR ---
PT RESTING IN BED WITH EYES CLOSED. NO S/S OF PAIN. BREATHING EVEN AND UNLABORED ON RA. CALL LIGHT WITH IN REACH. BED AT LOWEST POSITION. WILL CONTINUE TO MONITOR.
--- NOTE | 2019-05-29 01:41 | NUR ---
PT RESTING IN BED WITH EYES CLOSED. LAYING ON L SIDE. NO SIGNS OF DISTRESS NOTED. BREATHING EVEN/UNLABORED ON RA. CALL LIGHT WITHIN REACH, BED AT LOWEST POSITION. WILL CONTINUE TO MONITOR.
--- NOTE | 2019-05-29 01:42 | NUR ---
I HAVE REVIEWED THE DATA COLLECTION BY RN: FAITH SINGH ENTERED ON 05/28-05/29 I CONCUR WITH THE DATA AND ANY EXCEPTIONS OR COMMENTS ARE LISTED BELOW:
[2019-05-29 05:21] VITALS: BP 110/83
--- NOTE | 2019-05-29 05:23 | NUR ---
PT RESTING COMFORTABLY IN BED, WITH EYES CLOSED. FAMILY AT BEDSIDE. NO S/S OF PAIN AT THIS TIME. BREATHING EVEN AND UNLABORED ON RA. NO SIGNIFICANT CHANGES THIS SHIFT. CALL LIGHT W/I REACH. BED AT LOWEST POSITION. WILL ENDORSE TO DAY NURE.
[2019-05-29 06:03] LABS: PLATELET COUNT 288 x10^3mcL (130-400); RED CELL DISTRIBUTION WIDTH 13.6 % (11.5-14.5)
[2019-05-29 06:23] LABS: CALCIUM 9.3 mg/dL (8.5-10.1); CARBON DIOXIDE 28.1 mmol/L (21-32); CHLORIDE SERUM 101 mmol/L (98-107); CREATININE SERUM 0.6 mg/dL (0.6-1.0); GFR1 > 60 mL/min; GLUCOSE SERUM 178 mg/dL (74-106); MAGNESIUM 1.9 mg/dL (1.8-2.4); POTASSIUM SERUM 3.7 mmol/L (3.5-5.1); SODIUM SERUM 139 mmol/L (136-145)
--- NOTE | 2019-05-29 07:20 | NUR ---
RECEIVED PT FROM SHIFT NURSE ASLEEP BUT AROUSABLE. NO ACUTE DISTRESS NOTED. IV INTACT AND PATENT. BED IN LOW POSITION. CALL LIGHT WITHIN REACH. WILL CONATINUE TO MONITOR.
[2019-05-29 08:54] VITALS: BP 128/79
--- NOTE | 2019-05-29 10:10 | NUR ---
PT AMBULATING AROUND HALLWAY WITH FAMILY MEMBER.
[2019-05-29] MEDS ORDERED: MIRALAX17 GM/Dose PO (12:53)
[2019-05-29] MEDS ORDERED: REGLAN10 M1 PO (12:54)
[2019-05-29 13:06] VITALS: BP 128/79
--- NOTE | 2019-05-29 14:58 | NUR ---
PT A/OX4 UPON DC. DENEIS ANY ABD PAIN AT THIS TIME. IV REMOVED AND CATH INTACT. EDUCATION PROVIDED. NEW RX GIVEN. INSTRUCTED TO FOLLOW UP WITH PCP. PT VERBALIZED UNDERSTANDING. PERSONAL BELONGINGS TAKEN HOME. ACCOMPANIED BY RN AND FAMILY MEMBERS TO LOBBY.
== END 2019-05-29 14:56 | disposition home or self-care (01) | DRG 48 ==
LOC: ED 01:58 → MU 03:57 → EDBEDREQSVC 03:59 → MU 04:45
PROVIDERS: Emergency Medicine; ADMIT Internal Medicine
DX: E11.43 Type 2 diabetes mellitus with diabetic autonomic (poly)neuropathy (principal); N17.0 Acute kidney failure with tubular necrosis; E11.65 Type 2 diabetes mellitus with hyperglycemia; K31.84 Gastroparesis; E87.1 Hypo-osmolality and hyponatremia; E83.42 Hypomagnesemia; E87.6 Hypokalemia; E86.0 Dehydration; R80.9 Proteinuria, unspecified; E78.5 Hyperlipidemia, unspecified; E66.9 Obesity, unspecified; Z68.26 Body mass index [BMI] 26.0-26.9, adult; Z79.84 Long term (current) use of oral hypoglycemic drugs
CPT/HCPCS: 36600; 82962; 83880; G0378; J0696; J2270; J2405; J2765; J7030; J7050; Q0092

== ENCOUNTER 2019-05-29 21:13 | Emergency (ER) | payer MEDICAID ==
[~2019-05-29] VITALS: Ht 160 cm; Wt 68.0 kg
[~2019-05-29 21:13] MED LIST changes: +MIRALAX17 GM/Dose PO; +REGLAN10 M1 PO
[2019-05-29 21:18] VITALS: Ht 160 cm; Wt 68.0 kg
[2019-05-29 22:00] LABS: BASOPHIL % 0.5 % (0-2); PLATELET COUNT 329 x10^3mcL (130-400); RED CELL DISTRIBUTION WIDTH 13.9 % (11.5-14.5)
[2019-05-29 22:16] LABS: CALCIUM 9.7 mg/dL (8.5-10.1); CARBON DIOXIDE 24.4 mmol/L (21-32); CHLORIDE SERUM 97 mmol/L (98-107); CREATININE SERUM 0.7 mg/dL (0.6-1.0); GFR1 > 60 mL/min; GLUCOSE SERUM 195 mg/dL (74-106); POTASSIUM SERUM 3.5 mmol/L (3.5-5.1); SODIUM SERUM 136 mmol/L (136-145)
[2019-05-29 22:20] LABS: ALBUMIN 3.7 g/dL (3.4-5.0); ALKALINE PHOSPHATASE 70 U/L (46-116); ALT/SGPT 84 U/L (14-59); AST/SGOT 28 U/L (15-37); LIPASE 71 IU/L (73-393); MAGNESIUM 1.9 mg/dL (1.8-2.4); TOTAL PROTEIN, SERUM 7.3 g/dL (6.4-8.2)
[2019-05-30 00:05] VITALS: BP 125/91
== END 2019-05-30 00:35 | disposition home or self-care (01) ==
LOC: ED 21:13
PROVIDERS: Emergency Medicine
DX: K58.9 Irritable bowel syndrome, unspecified (principal); R11.2 Nausea with vomiting, unspecified; E11.9 Type 2 diabetes mellitus without complications; Z90.49 Acquired absence of other specified parts of digestive tract
CPT/HCPCS: J1200; J2270; J2405; J7030; Q9967

== ENCOUNTER 2019-06-05 16:29 | Emergency (ER) | payer MEDICAID ==
[~2019-06-05] VITALS: Ht 160 cm; Wt 65.3 kg
[2019-06-05 16:47] VITALS: Ht 160 cm; Wt 65.3 kg
[2019-06-05 17:44] LABS: BASOPHIL % 0.6 % (0-2); PLATELET COUNT 296 x10^3mcL (130-400); RED CELL DISTRIBUTION WIDTH 13.6 % (11.5-14.5)
[2019-06-05 17:58] LABS: CALCIUM 10.1 mg/dL (8.5-10.1); CARBON DIOXIDE 27.7 mmol/L (21-32); CHLORIDE SERUM 102 mmol/L (98-107); CREATININE SERUM 0.7 mg/dL (0.6-1.0); GFR1 > 60 mL/min; GLUCOSE SERUM 237 mg/dL (74-106); POTASSIUM SERUM 4.2 mmol/L (3.5-5.1); SODIUM SERUM 140 mmol/L (136-145)
[2019-06-05 17:59] LABS: microscopic required? NO
[2019-06-05 18:00] LABS: ALBUMIN 3.9 g/dL (3.4-5.0); ALKALINE PHOSPHATASE 70 U/L (46-116); ALT/SGPT 128 U/L (14-59); AST/SGOT 43 U/L (15-37); BILIRUBIN TOTAL 0.57 mg/dL (0.20-1.00); LIPASE 114 IU/L (73-393); TOTAL PROTEIN, SERUM 7.8 g/dL (6.4-8.2)
[2019-06-05 18:05] LABS: UA SPECIFIC GRAVITY 1.015 (1.005-1.035); urine erythrocyte NEGATIVE (NEGATIVE)
[2019-06-05 18:21] LABS: AMPHETAMINE QUAL UR NONE DETECTED (See below)
[2019-06-05 18:27] VITALS: BP 135/90
== END 2019-06-05 18:27 | disposition left against medical advice (07) ==
LOC: ED 16:29
PROVIDERS: Emergency Medicine
DX: E11.43 Type 2 diabetes mellitus with diabetic autonomic (poly)neuropathy (principal); K31.84 Gastroparesis; E11.65 Type 2 diabetes mellitus with hyperglycemia; Z90.49 Acquired absence of other specified parts of digestive tract
CPT/HCPCS: J1630; J2060; J7030

== ENCOUNTER 2019-06-14 21:45 | Emergency (ER) | payer MEDICAID ==
[~2019-06-14] VITALS: Ht 160 cm; Wt 68.5 kg
[2019-06-14 22:09] VITALS: Ht 160 cm; Wt 68.5 kg
[2019-06-15 00:41] LABS: BASOPHIL % 0.4 % (0-2); PLATELET COUNT 262 x10^3mcL (130-400); RED CELL DISTRIBUTION WIDTH 13.9 % (11.5-14.5)
[2019-06-15 00:52] LABS: CARBON DIOXIDE 28.3 mmol/L (21-32); CHLORIDE SERUM 104 mmol/L (98-107); CREATININE SERUM 0.7 mg/dL (0.6-1.0); GFR1 > 60 mL/min; GLUCOSE SERUM 179 mg/dL (74-106); POTASSIUM SERUM 3.4 mmol/L (3.5-5.1); SODIUM SERUM 140 mmol/L (136-145)
[2019-06-15 00:56] LABS: ALBUMIN 3.6 g/dL (3.4-5.0); ALKALINE PHOSPHATASE 52 U/L (46-116); ALT/SGPT 45 U/L (14-59); AST/SGOT 19 U/L (15-37); BILIRUBIN TOTAL 0.51 mg/dL (0.20-1.00); LIPASE 112 IU/L (73-393); TOTAL PROTEIN, SERUM 6.7 g/dL (6.4-8.2)
[2019-06-15 02:16] VITALS: BP 112/77
== END 2019-06-15 02:16 | disposition home or self-care (01) ==
LOC: ED 21:45
PROVIDERS: Emergency Medicine
DX: R10.84 Generalized abdominal pain (principal); G89.29 Other chronic pain; E11.9 Type 2 diabetes mellitus without complications; Z88.8 Allergy status to other drugs, medicaments and biological substances
CPT/HCPCS: J2270; J2405; J7030

== ENCOUNTER 2019-07-04 23:57 | Emergency (ER) | payer MEDICAID ==
[~2019-07-04] VITALS: Ht 160 cm; Wt 64.4 kg
[2019-07-05 00:02] VITALS: Ht 160 cm; Wt 64.4 kg
[2019-07-05 00:59] LABS: microscopic required? NO
[2019-07-05 01:06] LABS: BASOPHIL % 0.7 % (0-2); PLATELET COUNT 296 x10^3mcL (130-400); RED CELL DISTRIBUTION WIDTH 13.4 % (11.5-14.5)
[2019-07-05 01:08] LABS: UA SPECIFIC GRAVITY 1.015 (1.005-1.035); urine erythrocyte NEGATIVE (NEGATIVE)
[2019-07-05 01:20] LABS: CALCIUM 9.4 mg/dL (8.5-10.1); CARBON DIOXIDE 24.9 mmol/L (21-32); CHLORIDE SERUM 98 mmol/L (98-107); CREATININE SERUM 0.7 mg/dL (0.6-1.0); GFR1 > 60 mL/min; GLUCOSE SERUM 303 mg/dL (74-106); POTASSIUM SERUM 3.8 mmol/L (3.5-5.1); SODIUM SERUM 137 mmol/L (136-145)
[2019-07-05 01:25] LABS: ALKALINE PHOSPHATASE 57 U/L (46-116); ALT/SGPT 50 U/L (14-59); AST/SGOT 15 U/L (15-37); BILIRUBIN TOTAL 0.4 mg/dL (0.20-1.00); LIPASE 157 IU/L (73-393); TOTAL PROTEIN, SERUM 6.8 g/dL (6.4-8.2)
[2019-07-05 01:45] LABS: ALBUMIN 3.3 g/dL (3.4-5.0)
[2019-07-05 02:35] VITALS: BP 108/72
== END 2019-07-05 02:35 | disposition home or self-care (01) ==
LOC: ED 23:57
PROVIDERS: Emergency Medicine
DX: K59.00 Constipation, unspecified (principal); K31.84 Gastroparesis; E11.65 Type 2 diabetes mellitus with hyperglycemia; R11.10 Vomiting, unspecified; Z88.8 Allergy status to other drugs, medicaments and biological substances; Z90.49 Acquired absence of other specified parts of digestive tract
CPT/HCPCS: J2060; J2765; J3490; J7030

== ENCOUNTER 2019-07-20 23:20 | Emergency (ER) | payer MEDICAID ==
[~2019-07-20] VITALS: Ht 160 cm; Wt 65.3 kg
[2019-07-21 00:05] LABS: BASOPHIL % 0.5 % (0-2); PLATELET COUNT 334 x10^3mcL (130-400); RED CELL DISTRIBUTION WIDTH 13.5 % (11.5-14.5)
[2019-07-21 00:10] LABS: CALCIUM 8.7 mg/dL (8.5-10.1); CARBON DIOXIDE 24.8 mmol/L (21-32); CHLORIDE SERUM 104 mmol/L (98-107); CREATININE SERUM 0.6 mg/dL (0.6-1.0); GFR1 > 60 mL/min; GLUCOSE SERUM 199 mg/dL (74-106); POTASSIUM SERUM 3.3 mmol/L (3.5-5.1); SODIUM SERUM 141 mmol/L (136-145)
[2019-07-21 00:16] LABS: ALBUMIN 3.7 g/dL (3.4-5.0); ALKALINE PHOSPHATASE 75 U/L (46-116); ALT/SGPT 63 U/L (14-59); AST/SGOT 26 U/L (15-37); BILIRUBIN TOTAL 0.8 mg/dL (0.20-1.00); HDL CHOLESTEROL 48 mg/dL (40-60); LIPASE 129 IU/L (73-393); TOTAL PROTEIN, SERUM 7.4 g/dL (6.4-8.2); TRIGLYCERIDES 131 mg/dL (<150)
[2019-07-21 00:17] LABS: T3 TOTAL 1.05 ng/mL
[2019-07-21 00:18] LABS: CHOLESTEROL 253 mg/dL (<200); CHOLESTEROL/HDL RATIO 5.3
[2019-07-21 00:19] LABS: FREE T4 1.02 ng/dL (0.76-1.46); FREE THYROXINE INDEX 2.8 ug/dL (1.4-4.5); T4(THYROXINE) 8.2 ug/dL (4.7-13.3)
[2019-07-21 01:57] VITALS: BP 100/67
== END 2019-07-21 01:57 | disposition home or self-care (01) ==
LOC: ED 23:20
PROVIDERS: Specialist
DX: R10.13 Epigastric pain (principal); G89.29 Other chronic pain; R11.10 Vomiting, unspecified; E11.9 Type 2 diabetes mellitus without complications; Z90.49 Acquired absence of other specified parts of digestive tract; Z88.8 Allergy status to other drugs, medicaments and biological substances
CPT/HCPCS: 83880; 84439; J2270; J2405; J3010; J3490; Q0092

== ENCOUNTER 2019-07-22 13:48 | Emergency (ER) | payer MEDICAID ==
[~2019-07-22] VITALS: Ht 157.5 cm; Wt 65.3 kg
[2019-07-22 14:20] VITALS: Ht 157.5 cm; Wt 65.3 kg
[2019-07-22 17:46] LABS: CALCIUM 8.3 mg/dL (8.5-10.1); CARBON DIOXIDE 22.6 mmol/L (21-32); CHLORIDE SERUM 107 mmol/L (98-107); CREATININE SERUM 0.6 mg/dL (0.6-1.0); GFR1 > 60 mL/min; GLUCOSE SERUM 211 mg/dL (74-106); POTASSIUM SERUM 3.3 mmol/L (3.5-5.1); SODIUM SERUM 144 mmol/L (136-145)
[2019-07-22 17:49] LABS: BASOPHIL % 0.6 % (0-2); PLATELET COUNT 286 x10^3mcL (130-400); RED CELL DISTRIBUTION WIDTH 13.7 % (11.5-14.5)
[2019-07-22 17:50] LABS: ALKALINE PHOSPHATASE 66 U/L (46-116); ALT/SGPT 53 U/L (14-59); AST/SGOT 22 U/L (15-37); BILIRUBIN TOTAL 0.6 mg/dL (0.20-1.00); LIPASE 67 IU/L (73-393); TOTAL PROTEIN, SERUM 6.6 g/dL (6.4-8.2)
[2019-07-22 17:55] LABS: ALBUMIN 3.1 g/dL (3.4-5.0)
[2019-07-22 20:20] VITALS: BP 132/95
== END 2019-07-22 20:20 | disposition home or self-care (01) ==
LOC: ED 13:48
PROVIDERS: Emergency Medicine
DX: R10.816 Epigastric abdominal tenderness (principal); G89.29 Other chronic pain; G43.A0 Cyclical vomiting, in migraine, not intractable; Z88.8 Allergy status to other drugs, medicaments and biological substances
CPT/HCPCS: J1885; J2270; J2405; J3010; J3490; J7030

== ENCOUNTER 2019-07-24 18:18 | Emergency (ER) | payer MEDICAID ==
[~2019-07-24] VITALS: Ht 160 cm; Wt 64.9 kg
[2019-07-24 18:29] VITALS: Ht 160 cm; Wt 64.9 kg
[2019-07-24 21:42] VITALS: BP 129/83
== END 2019-07-24 21:44 | disposition home or self-care (01) ==
LOC: ED 18:18
DX: G89.29 Other chronic pain (principal); R10.10 Upper abdominal pain, unspecified; G43.A0 Cyclical vomiting, in migraine, not intractable; E11.9 Type 2 diabetes mellitus without complications; Z88.8 Allergy status to other drugs, medicaments and biological substances
CPT/HCPCS: J2060; J2270; J2405; J7030

== ENCOUNTER 2019-07-28 18:05 | Emergency (ER) | payer MEDICAID ==
[~2019-07-28] VITALS: Ht 160 cm; Wt 65.3 kg
[2019-07-28 18:20] VITALS: Ht 160 cm; Wt 65.3 kg
[2019-07-28 19:09] LABS: UA SPECIFIC GRAVITY 1.015 (1.005-1.035); microscopic required? YES; urine erythrocyte TRACE (NEGATIVE)
[2019-07-28 19:13] LABS: BASOPHIL % 0.8 % (0-2); PLATELET COUNT 252 x10^3mcL (130-400); RED CELL DISTRIBUTION WIDTH 13.4 % (11.5-14.5)
[2019-07-28 19:24] LABS: CALCIUM 8.4 mg/dL (8.5-10.1); CARBON DIOXIDE 24.7 mmol/L (21-32); CHLORIDE SERUM 105 mmol/L (98-107); CREATININE SERUM 0.7 mg/dL (0.6-1.0); GFR1 > 60 mL/min; GLUCOSE SERUM 193 mg/dL (74-106); POTASSIUM SERUM 3.6 mmol/L (3.5-5.1); SODIUM SERUM 142 mmol/L (136-145)
[2019-07-28 19:28] LABS: ALBUMIN 3.4 g/dL (3.4-5.0); ALKALINE PHOSPHATASE 71 U/L (46-116); ALT/SGPT 43 U/L (14-59); AST/SGOT 18 U/L (15-37); BILIRUBIN TOTAL 0.32 mg/dL (0.20-1.00); LIPASE 186 IU/L (73-393); TOTAL PROTEIN, SERUM 6.8 g/dL (6.4-8.2)
[2019-07-28 21:40] VITALS: BP 100/72
== END 2019-07-28 21:40 | disposition home or self-care (01) ==
LOC: ED 18:05
PROVIDERS: Emergency Medicine
DX: G89.29 Other chronic pain (principal); R10.84 Generalized abdominal pain; E11.9 Type 2 diabetes mellitus without complications; R11.10 Vomiting, unspecified; Z88.8 Allergy status to other drugs, medicaments and biological substances
CPT/HCPCS: J1200; J1885; J2765; J3010

== ENCOUNTER 2019-07-29 20:39 | Inpatient (IN) | payer MEDICAID ==
[~2019-07-29] VITALS: Ht 160 cm; Wt 65.0 kg
[2019-07-29 20:55] VITALS: Ht 160 cm; Wt 65.0 kg
--- NOTE | 2019-07-29 21:58 | NUR ---
PT CAME TO ED CO EPIGASTRIC ABD PAIN THAT RADIATES TO FLANK ACCOMPANIED BY VOMITING. PT STS THE LAST 6 MONTH SHE HAS HAD UNEXPLAINED EPISODES OF VOMITING ON AND OFF. PT STS SHE WAS SEEN HERE YESTERDAY, FOR ABD PAIN AND VOMITING, STS SHE WAS DISCHARGE W/UNEXPLAINED VOMITING. PT STS THE PAIN IS 9/10, DISCRIBES IT AT THROBBING PAIN THAT RADIATES TO THE FLANK. PT STS SHE HAS VOMITED ALL DAY. NO S/S OF DISTRESS. RESP E/U. AT BEDSIDE. AWAITING MSE. WILL CONTINUE TO MONITOR.
[2019-07-29 23:01] LABS: CALCIUM 8.1 mg/dL (8.5-10.1); CARBON DIOXIDE 26.2 mmol/L (21-32); CHLORIDE SERUM 105 mmol/L (98-107); CREATININE SERUM 0.6 mg/dL (0.6-1.0); GFR1 > 60 mL/min; GLUCOSE SERUM 196 mg/dL (74-106); POTASSIUM SERUM 3.1 mmol/L (3.5-5.1); SODIUM SERUM 143 mmol/L (136-145)
[2019-07-29 23:05] LABS: ALKALINE PHOSPHATASE 61 U/L (46-116); ALT/SGPT 42 U/L (14-59); AST/SGOT 12 U/L (15-37); BILIRUBIN TOTAL 0.39 mg/dL (0.20-1.00); LIPASE 107 IU/L (73-393); TOTAL PROTEIN, SERUM 6.5 g/dL (6.4-8.2)
[2019-07-29 23:07] LABS: ALBUMIN 3.3 g/dL (3.4-5.0); BASOPHIL % 0.7 % (0-2); PLATELET COUNT 277 x10^3mcL (130-400); RED CELL DISTRIBUTION WIDTH 13.4 % (11.5-14.5)
--- NOTE | 2019-07-29 23:24 | NUR ---
MEDICATEDPT PER MDR ORDERS, SEE EMAR, FLUIDS INFUSING, NO INFILTRATION OR PAIN NOTED. PT VERBLIAZED UNDERSTANDING OF MEDICATION TEACHING.
--- NOTE | 2019-07-30 00:18 | NUR ---
GAVE REPORT TO SUKH PLATT ON MEDSURG UNIT , WHO IS TAKING REPORT FOR CHAVO PLATT, WHO WILL BE ASSUMING FURTHER CARE OF THIS PATIENT.
--- NOTE | 2019-07-30 00:25 | NUR ---
PT AMBULATED TO RESTROOM AND BACK WITH A STEADY GAIT TO OBTAIN URINE SAMPLE.
--- NOTE | 2019-07-30 00:35 | NUR ---
PT TAKEN OFF THE FLOOR VIA WHEELCHAIR TO MEDSUR BY EMT. PT IN NO DISTRESS, RESP E/U, SKIN INTACT WARM PALE AND DRY.
--- NOTE | 2019-07-30 00:41 | NUR ---
RECEIVED PT VIA W/C FROM E/D, ACCOMPANIED BY TRANSPORTER AND PT'S , MADELINE ROMERO. A/A/O X 4, CALM, COOPERATIVE. AMBULATORY, NO GAIT OR BALANCE IMPAIRMENT NOTED WHEN WALKING FROM W/C TO BED. DENIES CHEST PAIN OR DISCOMFORT AT THIS TIME. NO ACUTE RESPIRATORY DISTRESS NOTED. ABD SOFT, ROUND, TENDERNESS UPON PALPATION TO BUQ, C/O CONSTANT THROBBING ABD PAIN 7/10 RADIATING TO BACK, EXACERBATED BY MOVEMENT AND TWISTING, RELIEVED BY RESTING AND PAIN MEDICATIONS, NORMOACTIVE BOWEL SOUNDS X 4 QUADS, LAST BM 07/29/19, FORMED. VOIDS FREELY, DENIES DYSURIA. IV SITE 22G, CDI. ORIENTED PT AND TO ROOM, BED CONTROLS, CALL LIGHT SYSTEM. SIDE RAILS UP X 2, BED IN LOW POSITION. WILL ENDORSE TO LC ANGUIANO.
[2019-07-30 00:57] VITALS: BP 106/78
--- NOTE | 2019-07-30 01:31 | NUR ---
RECEIVED PATIENT FROM GABRIELLA,NEWLY ADMITTED.PATIENT WANTING PAIN MED STRONGER THAN TYLENOL.DR SANDI WINKLER AWARE.NS AT 100 CC/ HOUR INITIATED.IV SITE R HAND,EXTENSION TUBING APPLIED FOR EASIER HANDLING NURSE ABND PATIENT.PATIENT MEDSURG.
[2019-07-30 01:34] LABS: microscopic required? NO
--- NOTE | 2019-07-30 01:49 | NUR ---
QUIET ENVIRONMENT MAINTAINED,CALL LIGHT IN REACH.
[2019-07-30 01:52] LABS: urine erythrocyte NEGATIVE (NEGATIVE)
[2019-07-30 02:01] LABS: AMPHETAMINE QUAL UR NONE DETECTED (See below)
--- NOTE | 2019-07-30 05:04 | NUR ---
NEW IVF D5NS AT 80 CC/ HOUR.
[2019-07-30 05:51] VITALS: BP 111/72
--- NOTE | 2019-07-30 07:30 | NUR ---
RECEIVED PT FROM ACID LOADER. PT AWAKE, ALERT A/OX4. PT ON ROOM AIR WITH NO RESP DISTRESS NOTED. IV ACCESS LEFT HAND 22G CDI INFUSING D5NS AT 80ML/HR. PERIPHERAL PULSES PALPABLE, NO EDEMA NOTED. PT COMPLAINING OF PAIN TO ABDOMEN BUT TOLERABLE AT THIS TIME. PT DENIES NAUSEA/VOMITING AT THIS TIME. NO APPARENT ISSUES WITH ELIMINATION. SAFETY MEASURES IN PLACE, BED LOW AND LOCKED. CALL LIGHT WITHIN REACH.
--- NOTE | 2019-07-30 08:13 | NUR ---
DUE MEDS ADMINISTERED ORDERED. PT TOLERATED WELL. PT COMPLAINING OF SOME PAIN TO ABDOMEN BUT TOLERABLE AT THIS TIME. WILL CONTINUE TO MONITOR.
[2019-07-30 08:38] VITALS: BP 106/68
--- NOTE | 2019-07-30 10:25 | NUR ---
DOCTOR AT BEDSIDE MAKING ROUNDS. PT RESTING WITH NO ACUTE DISTRESS NOTED AT THIS TIME. WILL CONT TO MONITOR.
--- NOTE | 2019-07-30 12:30 | NUR ---
PT ASLEEP AT THIS TIME WITH NO ACUTE DISTRESS NOTED. BREATHING EVEN AND UNLABORED. CALL LIGHT WITHIN REACH.
--- NOTE | 2019-07-30 13:34 | NUR ---
SPOKE WITH DR RIVAS REGARDING PT. PT SAID SHE HAD EGD DONE A FEW MONTHS AGO AT [place]. PER DR RIVAS OK FOR PT TO GO ON FULL LIQUID DIET AT THIS TIME. PT DENIES NAUSEA/VOMITING. NEW ORDER PER RESIDENT TO OBTAIN MEDICAL RECORDS FOR EGD AT [place]. FAMILY AT BEDSIDE. NO ACUTE DISTRESS NOTED AT THIS TIME. PT ABDOMINAL PAIN TOLERABLE. PT FED LIQUID SNACKS AND WATER AT THIS TIME. WILL MONITOR.
--- NOTE | 2019-07-30 14:43 | NUR ---
PT COMPLAINING OF PAIN IN ABDOMEN 07/03. DR RIVAS AWARE. NEW ORDER FOR LEVSIN SUBLINGUAL. MED ADMINISTERED ORDERED PRN (SEE EMAR). WILL MONITOR.
--- NOTE | 2019-07-30 15:36 | NUR ---
PT CRYING AT THIS TIME, STATING SHE HAS ABDOMINAL PAIN. DR NUNES AWARE. PT REQUESTING PAIN MED. TYLENOL ADMINISTERED ORDERED PRN FOR PAIN (SEE EMAR). KUB SHOWED NO ACUTE FINDINGS, WITH MILD IMPACTED STOOL. PT DENIES CONSTIPATION. LAST BM YESTERDAY, FORMED WITH NO ISSUES. PT INSTRUCTED TO PROVIDE STOOL SAMPLE FOR H PYLORI TEST ORDERED. PT VERBALIZED UNDERSTANDING. WILL CONTINUE TO MONITOR.
[2019-07-30 16:24] VITALS: BP 135/81
--- NOTE | 2019-07-30 16:32 | NUR ---
PT CRYING AT THIS TIME, STATES TYLENOL DOES NOT HELP WITH THE ABDOMINAL PAIN. PT REPORTS MORPHINE IS WHAT USUALLY HELPS. DR NUNES AWARE. RE-ASSURANCE PROVIDED TO PATIENT. WILL CONT TO MONITOR.
--- NOTE | 2019-07-30 18:18 | NUR ---
PT STATING SHE WANTS TO LEAVE DUE TO PAIN NOT BEING MANAGED WITH MEDICATION ORDERED. PT WANTS SOMETHING STRONGER THAN TYLENOL. DOCTOR AWARE WITH NO NEW ORDER GIVEN AT THIS TIME. PT REQUESTING TO SPEAK TO DOCTOR.
--- NOTE | 2019-07-30 18:58 | NUR ---
PT SPOKE TO DR NUNES. PT LEAVING AGAINST MEDICAL ADVICE. PAPERWORK SIGNED. IV REMOVED WITH CATHETER INTACT. PT TAKEN BY WHEELCHAIR DOWN TO PRIVATE AUTO BY FILLING [employer]ULER WEAVING.
== END 2019-07-30 19:07 | disposition left against medical advice (07) | DRG 254 ==
LOC: ED 20:39 → MU 23:43
PROVIDERS: Emergency Medicine; ADMIT Internal Medicine
DX: K58.9 Irritable bowel syndrome, unspecified (principal); K31.84 Gastroparesis; E11.43 Type 2 diabetes mellitus with diabetic autonomic (poly)neuropathy; E11.65 Type 2 diabetes mellitus with hyperglycemia; E87.6 Hypokalemia; E78.5 Hyperlipidemia, unspecified; Z68.25 Body mass index [BMI] 25.0-25.9, adult; Z79.84 Long term (current) use of oral hypoglycemic drugs; Z87.19 Personal history of other diseases of the digestive system; Z90.49 Acquired absence of other specified parts of digestive tract
CPT/HCPCS: G0378; J1885; J2060; J2765; J3010; J7030; J7042; J8597; Q0092